=== PATIENT | male | born 1955 | race Caucasian/White ===

== ENCOUNTER → 2016-11-24 | Outpatient (REF) | payer BC | LOC: M LAB REF 15:14 | PROVIDERS: ATTEND Nurse Practitioner Primary Care | DX: N39.0 Urinary tract infection, site not specified (principal) ==

== ENCOUNTER 2018-03-31 05:53 | Emergency (ER) | payer BC ==
[2018-03-31] MEDS ORDERED: PILL CRUSHER/CUTTER 1 EACH XX (07:45)
[2018-03-31] MEDS: hydroCHLOROthiazide 12.5 MG CAPSULE PO (08:34)
[2018-03-31] MEDS: QUINAPRIL 20 MG TAB PO (08:35)
== END 2018-03-31 11:16 | disposition home or self-care (01) ==
LOC: M ED 05:53
DX: I10 Essential (primary) hypertension (principal); Z91.018 Allergy to other foods; Z79.899 Other long term (current) drug therapy
CPT/HCPCS: 99284

== ENCOUNTER → 2018-05-15 | Outpatient (CLI) | payer BC | LOC: M WUC 09:17 | DX: R06.02 Shortness of breath (principal) | CPT/HCPCS: 71046 ==

== ENCOUNTER → 2018-06-19 | Outpatient (CLI) | payer BC ==
[2018-06-19 15:03] LABS: ALBUMIN 4.1 GM/DL (3.2-5.2); ALBUMIN/GLOBULIN RATIO 1.28 (1.00-1.93); ALKALINE PHOSPHATASE 86 U/L (45-117); ALT/SGPT 43 U/L (12-78); AST/SGOT 24 U/L (7-37); BILIRUBIN,DIRECT 0.1 MG/DL (0.0-0.2); BILIRUBIN,TOTAL 0.5 MG/DL (0.2-1.0); CHOLESTEROL LEVEL 135 MG/DL (<200); HDL CHOLESTEROL 54 MG/DL (>40); LDL CHOLESTEROL 58.2 MG/DL (<100); NON-HDL-C 81 MG/DL; TOTAL PROTEIN 7.3 GM/DL (6.4-8.2); TRIGLYCERIDES LEVEL 114 MG/DL (<150)
== END ==
LOC: M WUC 13:12
DX: I25.10 Atherosclerotic heart disease of native coronary artery without angina pectoris (principal)
CPT/HCPCS: 80076